=== PATIENT | female | born 1975 | race Caucasian/White ===

== ENCOUNTER → 2016-07-11 | Outpatient (CLI) | payer BC ==
[2016-07-11 14:51] LABS: CH 32.2; CHCM 35.2; HCT 33.2 % (34.0-46.0); HDW 2.57; HGB 11.8 gm/dL (11.4-16.0); MCH 32.6 pg (25.0-35.0); MCHC 35.5 g/dL (31.0-37.0); MCV 91.9 fL (80.0-100.0); Mean Platelet Volume 8.7; RBC 3.62 m/uL (3.80-5.40); RDW 12.2 % (11.5-15.5); WBC 7.3 k/uL (3.8-10.6)
== END | disposition home or self-care (01) ==
LOC: LABWHC1 14:34
PROVIDERS: ATTEND Obstetrics & Gynecology
DX: R50.9 Fever, unspecified (principal)
CPT/HCPCS: 36415; 85027

== ENCOUNTER → 2017-12-03 | Outpatient (CLI) | payer BC ==
--- NOTE | 2017-12-03 10:43 | MM ---
Reason for exam: screening (asymptomatic). Baseline mammogram. History: Took hormonal contraceptives beginning at age 16. Physical Findings: Nurse did not find any significant physical abnormalities on exam. MG 3D Screening Mammo W/Cad Bilateral CC and MLO view(s) were taken. The breast tissue is heterogeneously dense. This may lower the sensitivity of mammography. Right upper outer quadrant distortion at posterior depth. These results were verbally communicated with the patient and result sheet given to the patient on 12/03/17. ASSESSMENT: Incomplete: need additional imaging evaluation, BI-RAD 0 RECOMMENDATION: Special view mammogram of the right breast. If lesion persists on supplemental views, image directed ultrasound is recommended. [facility] will attempt to contact patient to return for supplemental views and ultrasound if indicated.
--- NOTE | 2017-12-03 10:44 | MM ---
Reason for exam: additional evaluation requested from abnormal screening. History: Took hormonal contraceptives beginning at age 16. Physical Findings: Breast exam preformed at baseline screening. MG 3D Work Up W/Cad RT Spot compression CC, spot compression MLO, and ML view(s) were taken of the right breast. The breast tissue is heterogeneously dense. This may lower the sensitivity of mammography. No suspicious abnormality. The upper outer quadrant right focal asymmetry resolves into a background of fibroglandular tissue on additional views. These results were verbally communicated with the patient and result sheet given to the patient on 12/03/17. ASSESSMENT: Benign, BI-RAD 2 RECOMMENDATION: Return to routine screening mammogram schedule for both breasts.
== END | disposition home or self-care (01) ==
LOC: RADMAMWWP 08:21
PROVIDERS: ATTEND Family Medicine
DX: Z12.31 Encounter for screening mammogram for malignant neoplasm of breast (principal); R92.8 Other abnormal and inconclusive findings on diagnostic imaging of breast
CPT/HCPCS: 77061; 77063; 77065; 77067

== ENCOUNTER → 2018-02-23 | Outpatient (CLI) | payer BC ==
--- NOTE | 2018-02-23 12:13 | XR ---
EXAMINATION TYPE: XR chest 2V DATE OF EXAM: 02/23/2018 COMPARISON: 11/12/2011 INDICATION: Cough short of breath TECHNIQUE: Frontal and lateral views of the chest are obtained. FINDINGS: The heart size is normal. The pulmonary vasculature is normal. The lungs are clear. IMPRESSION: 1. No acute pulmonary process.
== END | disposition home or self-care (01) ==
LOC: RADXRMAIN 10:32
PROVIDERS: ATTEND Midwife
DX: R06.02 Shortness of breath (principal)
CPT/HCPCS: 71046

== ENCOUNTER → 2018-04-08 | Outpatient (CLI) | payer BC ==
--- NOTE | 2018-04-08 11:56 | US ---
EXAMINATION TYPE: US transvaginal DATE OF EXAM: 04/08/2018 COMPARISON: US CLINICAL HISTORY: N91.2Amenorrhea, Unspecified. Pt states LMP: December 2017, RLQ pain TECHNIQUE: Transvaginal (TV). Transvag sonographic images of the pelvis were acquired. Date of LMP: December EXAM MEASUREMENTS: Uterus: 9.5 x 4.4 x 6.1 cm Endometrial Stripe: 1.0 cm Right Ovary: 4.2 x 2.9 x 2.9 cm Left Ovary: 2.6 x 2.8 x 1.7 cm 1. Uterus: Anteverted Heterogeneous 2. Endometrium: wnl 3. Right Ovary: Possible isoechoic lesion= 2.9 x 2.1 x 2.2 cm/ Simple cyst= 2.6 x 2.1 x 2.0 cm 4. Left Ovary: Dominant follicle= 1.6 x 1.1 x 1.7 cm 5. Bilateral Adnexa: wnl 6. Posterior cul-de-sac: Very small amount of free fluid IMPRESSION: 1. Nonspecific right ovarian lesion may reflect a complex cyst. Follow-up study in 6 weeks is advised . 2. Dominant left ovarian follicle. 3. Nonspecific uterine myometrial heterogeneity.
== END | disposition home or self-care (01) ==
LOC: RADUSWWP 10:47
PROVIDERS: ATTEND Family Medicine
DX: L98.9 Disorder of the skin and subcutaneous tissue, unspecified (principal); N91.2 Amenorrhea, unspecified
CPT/HCPCS: 76830

== ENCOUNTER 2020-10-15 15:43 | Observation (INO) | payer BC ==
[2020-10-15] MEDS ORDERED: diphenhydrAMINE 50 MG/ML 1 ML VIAL IVP STA (18:45)
[2020-10-15] MEDS ORDERED: METOCLOPRAMIDE 5 MG/ML 2 ML VIAL IVP STA (18:45)
[2020-10-15] MEDS ORDERED: KETOROLAC 15 MG/ML 1 ML VIAL IVP STA (18:45)
[2020-10-15] MEDS ORDERED: SODIUM CHLORIDE 0.9% 1,000 ML IV ONE (18:46)
[2020-10-15] MEDS ORDERED: MAGNESIUM SULFATE-D5W PMX 1 GM in DEXTROSE/WATER 1 100ML.BAG IVPB ONE (18:46)
[2020-10-15 19:16] LABS: Basophils # (A) 0.1 k/uL (0-0.2); Basophils % (A) 0 %; Eosinophils # (A) 0.3 k/uL (0-0.7); Eosinophils % (A) 1 %; HCT 38.5 % (34.0-46.0); Lymphocytes # (A) 1.7 k/uL (1.0-4.8); Lymphocytes % (A) 7 %; MCH 31.4 pg (25.0-35.0); MCHC 33.8 g/dL (31.0-37.0); MCV 92.9 fL (80.0-100.0); Mean Platelet Volume 8.2; Monocytes # (A) 0.4 k/uL (0-1.0); Monocytes % (A) 2 %; Neutrophils # (A) 21.4 k/uL (1.3-7.7); Neutrophils % (A) 89 %; Platelet Count 248 k/uL (150-450); RBC 4.14 m/uL (3.80-5.40)
[2020-10-15 19:23] LABS: Appearance,Urine Cloudy (Clear); Bacteria,Urine Occasional /hpf; Bilirubin,Urine Negative (Negative); Blood,Urine Moderate (Negative); Color,Urine Yellow; Glucose,Urine (UA) Negative (Negative); Ketones,Urine Negative (Negative); Leukocyte Esterase,Urine Large (Negative); Mucus,Urine Few /hpf; Nitrite,Urine Negative (Negative); Protein,Urine 2+ (Negative); RBC,Urine 8 /hpf (0-5); Specific Gravity,Urine 1.023 (1.001-1.035); Squamous Epithelial Cell,Urine 20 /hpf (0-4); Urobilinogen,Urine <2.0 mg/dL (<2.0); WBC,Urine 9 /hpf (0-5)
[2020-10-15 19:25] LABS: ALT 23 U/L (4-34); AST 29 U/L (14-36); African American GFR (CKD) >90 (>60 ml/min/1.73 sqM); Albumin 3.9 g/dL (3.5-5.0); Alkaline Phosphatase 73 U/L (38-126); Anion Gap 9 mmol/L; Blood Urea Nitrogen 15 mg/dL (7-17); Calcium 9.3 mg/dL (8.4-10.2); Carbon Dioxide 21 mmol/L (22-30); Chloride 107 mmol/L (98-107); Glucose 111 mg/dL (74-99); Non-African American GFR(CKD) >90 (>60 ml/min/1.73 sqM); Potassium 4.1 mmol/L (3.5-5.1); Sodium 137 mmol/L (137-145); Total Bilirubin 0.6 mg/dL (0.2-1.3); Total Protein 6.7 g/dL (6.3-8.2)
[2020-10-15] MEDS ORDERED: cefTRIAXone IN SWFI 1,000 MG/10 ML SYRINGE IVP STA ×2 (19:32→21:45)
--- NOTE | 2020-10-15 20:31 | CT ---
EXAMINATION TYPE: CT brain wo con DATE OF EXAM: 10/15/2020 COMPARISON: None available HISTORY: Headache. CT DLP: 1125.4 mGycm. Automated Exposure Control for Dose Reduction was Utilized. TECHNIQUE: CT scan of the head is performed without contrast. Sagittal and coronal reformatted images were obtained. FINDINGS: There is no acute intracranial hemorrhage, mass effect, or midline shift identified. The ventricles and sulci are within normal limits in size. The globes are intact and the visualized sinuses are jaylan ar. IMPRESSION: No acute intracranial hemorrhage, mass effect, or midline shift is seen.
--- NOTE | 2020-10-15 20:35 | CT ---
EXAMINATION TYPE: CT abdomen pelvis w con DATE OF EXAM: 10/15/2020 COMPARISON: CT abdomen/pelvis 04/22/2015 HISTORY: Fever and abdominal pain. CT DLP: 1482.7 mGycm Automated exposure control for dose reduction was used. TECHNIQUE: Helical acquisition of images was performed from the lung bases through the pelvis. Sagit reny coronal reformatted images were obtained. CONTRAST: Performed without Oral Contrast and with IV Contrast, patient injected with 100ml mL of Isovue 300. FINDINGS: Lung bases appear clear. Liver, spleen, pancreas, and bilateral adrenal glands are unremarkable. Gallbladder is present. No intrahepatic or extra hepatic biliary ductal dilatation. The kidneys are symmetric in size without hydronephrosis, renal calculus, or mass. Urinary bladder ap pears unremarkable. Uterus is present. No adnexal masses. No significant free fluid. Bowel is of normal caliber without evidence of obstruction. No significant mesenteric inflammation. A ppendix appears unremarkable. Abdominal aorta is of normal caliber. No intra-abdominal or retroperitoneal lymphadenopathy. Small fa t-containing umbilical hernia. Osseous structures appear intact. IMPRESSION: No acute intra-abdominal process.
--- NOTE | 2020-10-15 20:47 | ED ---
General Adult HPI - General Chief complaint: Headache Stated complaint: headache, right side facial numbness, fever Source: patient Mode of arrival: wheelchair Limitations: no limitations - History of Present Illness Initial comments: The patient is a 45-year-old female with no past medical history who presents emergency Department with reported abdominal pain, fever and concern for septic stone. Patient states that she has had some lower abdominal cramping for the past couple of days. She has increased frequency of urination. She admits to history of similar symptoms in the past when she had a septic stone. The patient had a temp of 101.7 at 10 AM today. States that she's been taking Motrin around the clock. She has an associated global headache with photophobia. States she normally does not get migraines. She denies any sick contacts. Admits to a mild nonproductive cough. No concern for as she has had an ablation. No changes in her bowel habits. No abnormal vaginal bleeding or discharge. No other alleviating, precipitating factors - Related Data Home Medications Medication Instructions Recorded Confirmed Acetaminophen [Tylenol] 1,000 mg PO Q4-6H PRN 10/15/20 10/15/20 Ascorbic Acid [Vitamin C] 1,000 mg PO DAILY 10/15/20 10/15/20 Cholecalciferol [Vitamin D3 (25 50 mcg PO DAILY 10/15/20 10/15/20 Mcg = 1000 Iu)] Esomeprazole Magnesium [NexIUM 20 mg PO BID PRN 10/15/20 10/15/20 24Hr] Ibuprofen [Motrin Ib] 800 mg PO Q8H PRN 10/15/20 10/15/20 L.acidoph,Paracasei, B.lactis 1 cap PO DAILY 10/15/20 10/15/20 [Probiotic] LORazepam [Ativan] 0.5 mg PO TID PRN 10/15/20 10/15/20 Magnesium Oxide [Mag-Ox] 400 mg PO HS 10/15/20 10/15/20 Turmeric Root Extract [Turmeric] 500 mg PO DAILY 10/15/20 10/15/20 Zinc 50 mg PO DAILY 10/15/20 10/15/20 Allergies Allergy/AdvReac Type Severity Reaction Status Date / Time sulfamethoxazole Allergy Swelling Verified 10/15/20 18:20 [From Bactrim] trimethoprim [From Bactrim] Allergy Swelling Verified 10/15/20 18:20 Review of Systems ROS Statement: Those systems with pertinent positive or pertinent negative responses have been documented in the HPI. ROS Other: All systems not noted in ROS Statement are negative. Past Medical History Past Medical History: No Reported History History of Any Multi-Drug Resistant Organisms: None Reported Past Surgical History: Tubal Ligation Past Psychological History: Anxiety Smoking Status: Never smoker Past Alcohol Use History: None Reported Past Drug Use History: None Reported General Exam Limitations: no limitations Course Vital Signs 10/15/20 10/15/20 10/15/20 15:53 18:00 20:18 Temperature 99.8 F H 98.7 F 98.4 F Pulse Rate 88 71 Respiratory 18 18 Rate Blood Pressure 151/94 139/86 O2 Sat by Pulse 97 94 L Oximetry Medical Decision Making - Medical Decision Making Upon arrival patient is placed in room 6. A thorough history and physical exam was performed. IV is established and the patient was given migraine cocktail an d a liter bolus of normal saline. Laboratory studies were conducted which demonstrated white count 24,000. Urinalysis is not a clean catch however does have bacteria. This will be sent for culture. Covid is negative. Chest x-ray does not demonstrate an acute process. CT the abdomen and pelvis does not demonstrate any process. CT of the patient's brain is negative for any acute hemorrhage, mass or edema. The patient is reevaluated and does have improvement in her headache. I did discuss diagnosis, differential and treatment options. She does present with headache and reported fever I did recommend lumbar puncture however the patient is refusing at this time. She is aware of the ris ks of not completing the procedure at this time. I will cover the patient with 2 g of Rocephin. Repeat laboratory studies will be performed performed in the morning. Patient is requesting Ativan for anxiety for which I did order. I spoke with Who Agreed to Admit the Patient. She Is Currently Awaiting a Bed on the Floor - Lab Data Result diagrams: 10/15/20 19:08 10/15/20 19:08 Lab Results 10/15/20 10/15/20 10/15/20 Range/Units 19:08 19:08 19:08 WBC 24.0 H (3.8-10.6) k/uL RBC 4.14 (3.80-5.40) m/uL Hgb 13.0 (11.4-16.0) gm/dL Hct 38.5 (34.0-46.0) % MCV 92.9 (80.0-100.0) fL MCH 31.4 (25.0-35.0) pg MCHC 33.8 (31.0-37.0) g/dL RDW 13.0 (11.5-15.5) % Plt Count 248 (150-450) k/uL MPV 8.2 Neutrophils % 89 % Lymphocytes % 7 % Monocytes % 2 % Eosinophils % 1 % Basophils % 0 % Neutrophils # 21.4 H (1.3-7.7) k/uL Lymphocytes # 1.7 (1.0-4.8) k/uL Monocytes # 0.4 (0-1.0) k/uL Eosinophils # 0.3 (0-0.7) k/uL Basophils # 0.1 (0-0.2) k/uL Sodium 137 (137-145) mmol/L Potassium 4.1 (3.5-5.1) mmol/L Chloride 107 (98-107) mmol/L Carbon Dioxide 21 L (22-30) mmol/L Anion Gap 9 mmol/L BUN 15 (7-17) mg/dL Creatinine 0.69 (0.52-1.04) mg/dL Est GFR (CKD-EPI)AfAm >90 (>60 ml/min/1.73 sqM) Est GFR (CKD-EPI)NonAf >90 (>60 ml/min/1.73 sqM) Glucose 111 H (74-99) mg/dL Plasma Lactic Acid Shant (0.7-2.0) mmol/L Calcium 9.3 (8.4-10.2) mg/dL Total Bilirubin 0.6 (0.2-1.3) mg/dL AST 29 (14-36) U/L ALT 23 (4-34) U/L Alkaline Phosphatase 73 (38-126) U/L Total Protein 6.7 (6.3-8.2) g/dL Albumin 3.9 (3.5-5.0) g/dL Urine Color Yellow Urine Appearance Cloudy H (Clear) Urine pH 6.0 (5.0-8.0) Ur Specific [place] 1.023 (1.001-1.035) Urine Protein 2+ H (Negative) Urine Glucose (UA) Negative (Negative) Urine Ketones Negative (Negative) Urine Blood Moderate H (Negative) Urine Nitrite Negative (Negative) Urine Bilirubin Negative (Negative) Urine Urobilinogen <2.0 (<2.0) mg/dL Ur Leukocyte Esterase Large H (Negative) Urine RBC 8 H (0-5) /hpf Urine WBC 9 H (0-5) /hpf Ur Squamous Epith Cells 20 H (0-4) /hpf Urine Bacteria Occasional H (None) /hpf Urine Mucus Few H (None) /hpf Coronavirus (PCR) (Not Detectd) 10/15/20 10/15/20 Range/Units 19:08 20:22 WBC (3.8-10.6) k/uL RBC (3.80-5.40) m/uL Hgb (11.4-16.0) gm/dL Hct (34.0-46.0) % MCV (80.0-100.0) fL MCH (25.0-35.0) pg MCHC (31.0-37.0) g/dL RDW (11.5-15.5) % Plt Count (150-450) k/uL MPV Neutrophils % % Lymphocytes % % Monocytes % % Eosinophils % % Basophils % % Neutrophils # (1.3-7.7) k/uL Lymphocytes # (1.0-4.8) k/uL Monocytes # (0-1.0) k/uL Eosinophils # (0-0.7) k/uL Basophils # (0-0.2) k/uL Sodium (137-145) mmol/L Potassium (3.5-5.1) mmol/L Chloride (98-107) mmol/L Carbon Dioxide (22-30) mmol/L Anion Gap mmol/L BUN (7-17) mg/dL Creatinine (0.52-1.04) mg/dL Est GFR (CKD-EPI)AfAm (>60 ml/min/1.73 sqM) Est GFR (CKD-EPI)NonAf (>60 ml/min/1.73 sqM) Glucose (74-99) mg/dL Plasma Lactic Acid Shant 1.4 (0.7-2.0) mmol/L Calcium (8.4-10.2) mg/dL Total Bilirubin (0.2-1.3) mg/dL AST (14-36) U/L ALT (4-34) U/L Alkaline Phosphatase (38-126) U/L Total Protein (6.3-8.2) g/dL Albumin (3.5-5.0) g/dL Urine Color Urine Appearance (Clear) Urine pH (5.0-8.0) Ur Specific [place] (1.001-1.035) Urine Protein (Negative) Urine Glucose (UA) (Negative) Urine Ketones (Negative) Urine Blood (Negative) Urine Nitrite (Negative) Urine Bilirubin (Negative) Urine Urobilinogen (<2.0) mg/dL Ur Leukocyte Esterase (Negative) Urine RBC (0-5) /hpf Urine WBC (0-5) /hpf Ur Squamous Epith Cells (0-4) /hpf Urine Bacteria (None) /hpf Urine Mucus (None) /hpf Coronavirus (PCR) Not Detected (Not Detectd) Disposition Clinical Impression: Cephalgia, UTI (urinary tract infection), Leukocytosis, Pyelonephritis Disposition: ADMITTED IP TO THIS [facility] Condition: Stable Is patient prescribed a controlled substance at d/c from ED?: No Referrals: Oscar Field MD [Primary Care Provider] - 1-2 days Decision to Admit Reason: Admit from EC Decision Date: 10/15/20 Decision Time: 21:41
--- NOTE | 2020-10-15 21:00 | XR ---
EXAMINATION TYPE: XR chest 2V DATE OF EXAM: 10/15/2020 COMPARISON: NONE HISTORY: Headache, fever, nausea TECHNIQUE: Frontal and lateral views of the chest are obtained. FINDINGS: There is no focal air space opacity, pleural effusion, or pneumothorax seen. The cardiac silhouette size is within normal limits. The osseous structures are intact. IMPRESSION: No acute cardiopulmonary process.
[2020-10-15] MEDS ORDERED: ACETAMINOPHEN TAB 500 MG TAB PO STA (21:36)
[2020-10-15] MEDS ORDERED: LORazepam 2 MG/ML INJ IV STA (21:36)
[2020-10-15] MEDS ORDERED: NALOXONE 0.4 MG/ML 1 ML VIAL IV PRN (21:45)
[2020-10-15] MEDS: SODIUM CHLORIDE 0.9% 1,000 ML IV SCH (22:26)
[2020-10-16] MEDS: KETOROLAC 15 MG/ML 1 ML VIAL IVP PRN ×3 (02:12→15:21)
[2020-10-16] MEDS: SODIUM CHLORIDE 0.9% 1,000 ML IV SCH ×3 (05:38→21:02)
[2020-10-16] MEDS ORDERED: MORPHINE SULFATE 2 MG/ML SYRINGE IVP STA (05:45)
[2020-10-16 06:47] LABS: Basophils % (A) 0 %; Eosinophils # (A) 0.2 k/uL (0-0.7); Eosinophils % (A) 1 %; HCT 34.5 % (34.0-46.0); HGB 11.8 gm/dL (11.4-16.0); Lymphocytes # (A) 1.8 k/uL (1.0-4.8); Lymphocytes % (A) 11 %; MCH 32.2 pg (25.0-35.0); MCHC 34.2 g/dL (31.0-37.0); MCV 94.2 fL (80.0-100.0); Mean Platelet Volume 8.4; Monocytes # (A) 0.4 k/uL (0-1.0); Monocytes % (A) 3 %; Neutrophils # (A) 14.7 k/uL (1.3-7.7); Neutrophils % (A) 85 %; Platelet Count 202 k/uL (150-450); RBC 3.67 m/uL (3.80-5.40); RDW 12.8 % (11.5-15.5); WBC 17.3 k/uL (3.8-10.6)
[2020-10-16 07:29] LABS: African American GFR (CKD) >90 (>60 ml/min/1.73 sqM); Anion Gap 8 mmol/L; Blood Urea Nitrogen 15 mg/dL (7-17); Calcium 8.2 mg/dL (8.4-10.2); Carbon Dioxide 20 mmol/L (22-30); Chloride 110 mmol/L (98-107); Glucose 104 mg/dL (74-99); Non-African American GFR(CKD) >90 (>60 ml/min/1.73 sqM); Potassium 3.9 mmol/L (3.5-5.1); Sodium 138 mmol/L (137-145)
[2020-10-16] MEDS ORDERED: PANTOPRAZOLE 40 MG TABLET PO PRN (11:12)
[2020-10-16] MEDS ORDERED: ONDANSETRON 4 MG/2 ML VIAL IVP PRN (13:04)
[2020-10-16] MEDS ORDERED: diphenhydrAMINE 50 MG/ML 1 ML VIAL IVP STA (17:59)
[2020-10-16] MEDS ORDERED: PROCHLORPERAZINE INJ 10 MG/2 ML VIAL IVP STA (18:00)
[2020-10-16] MEDS ORDERED: KETOROLAC 15 MG/ML 1 ML VIAL IM STA (18:01)
[2020-10-16] MEDS: LORazepam 2 MG/ML INJ IV PRN (20:54)
--- NOTE | 2020-10-17 00:43 | P.HPIM ---
History of Present Illness H&P Date: 10/16/20 Chief Complaint: Abdominal Pain Patient is a 45-year-old female with a known history of anxiety, migraine headaches, currently someday smoker presents to ER with the complaints of lower abdominal cramping pain and fever. Patient was concerned about passing stone. She was told that she had renal stones previously but never has seen urology. Denied any dysuria or increased frequency of urination. Patient states that she had fever 101.7 yesterday morning. Patient has been taking Motrin. Patient also developed headache mainly frontal region and photophobia. Patient does have episodic migraine headaches around this season and usually resolves spontaneously. Patient had severe headache while in the ER and was given Benadryl, Toradol and Reglan., Which seemed to improve her headache significantly. Patient recently seen her chiropractor Chin due to her chronic neck pain. Denies any complaints of chest pain or shortness of breath. No recent illnesses. CT head showed no acute intracranial hemorrhage, mass-effect or midline shift is seen. CT abdomen pelvis showed no acute intra-abdominal process. Chest x-ray showed no acute process. Laboratory data showed WBC 24.0 hemoglobin 13.0 and platelets 248 Sodium 137 potassium 4.1 chloride 107 bicarb is 21 BUN 15 and creatinine 0.69 Liver enzymes are not elevated Urinalysis showed cloudy with 2+ protein moderate blood large leukocyte esterase with RBCs 8 and WBCs 9 and squamous epithelial cells. Coronavirus PCR not detected. Review of Systems Constitutional: Patient was febrile. No chills. No generalized weakness or weight loss. Abdomen: Patient does have lower abdominal and left flank pain. No dysuria or hematuria. No nausea vomiting or diarrhea.. Cardiovascular: Patient denies any chest pain or short of breath no palpitations. Respiratory: patient denied any cough or sputum production. No shortness of breath Neurologic: Patient denied any numbness or tingling headache. Musculoskeletal: Patient denies any complaints of joint swelling or deformity. Skin: Negative Psychiatric: Negative Endocrine: No heat or cold intolerance. No recent weight gain. Genitourinary: No dysuria or hematuria. All other 14 point ROS negative except the above Past Medical History Past Medical History: No Reported History History of Any Multi-Drug Resistant Organisms: None Reported Past Surgical History: Tubal Ligation Additional Past Surgical History / Comment(s): Ablation Past Anesthesia/Blood Transfusion Reactions: No Reported Reaction Past Psychological History: Anxiety Additional Psychological History / Comment(s): Ativan 0.5mg TID Smoking Status: Current some day smoker Past Alcohol Use History: None Reported Past Drug Use History: None Reported Medications and Allergies Home Medications Medication Instructions Recorded Confirmed Type Acetaminophen [Tylenol] 1,000 mg PO Q4-6H PRN 10/15/20 10/15/20 History Ascorbic Acid [Vitamin C] 1,000 mg PO DAILY 10/15/20 10/15/20 History Cholecalciferol [Vitamin D3 (25 50 mcg PO DAILY 10/15/20 10/15/20 History Mcg = 1000 Iu)] Esomeprazole Magnesium [NexIUM 20 mg PO BID PRN 10/15/20 10/15/20 History 24Hr] Ibuprofen [Motrin Ib] 800 mg PO Q8H PRN 10/15/20 10/15/20 History L.acidoph,Paracasei, B.lactis 1 cap PO DAILY 10/15/20 10/15/20 History [Probiotic] LORazepam [Ativan] 0.5 mg PO TID PRN 10/15/20 10/15/20 History Magnesium Oxide [Mag-Ox] 400 mg PO HS 10/15/20 10/15/20 History Turmeric Root Extract [Turmeric] 500 mg PO DAILY 10/15/20 10/15/20 History Zinc 50 mg PO DAILY 10/15/20 10/15/20 History Allergies Allergy/AdvReac Type Severity Reaction Status Date / Time sulfamethoxazole Allergy Swelling Verified 10/15/20 18:20 [From Bactrim] trimethoprim [From Bactrim] Allergy Swelling Verified 10/15/20 18:20 Physical Exam Vitals: Vital Signs Temp Pulse Pulse Resp BP BP Pulse Ox 10/16/20 08:00 98.6 F 83 18 129/84 96 10/16/20 02:11 99.1 F 96 16 119/72 94 L 10/15/20 23:38 16 10/15/20 23:19 99.5 F 86 16 137/85 96 10/15/20 22:25 99.7 F H 62 18 149/86 96 10/15/20 20:18 98.4 F 71 18 139/86 94 L 10/15/20 18:00 98.7 F 10/15/20 15:53 99.8 F H 88 18 151/94 97 Intake and Output 10/15/20 10/16/20 10/16/20 22:59 06:59 14:59 Intake Total 300 Balance 300 Intake: Oral 300 Other: Voiding Method Toilet # Voids 1 Weight 99.79 kg 99.7 kg PHYSICAL EXAMINATION: Patient is lying in the bed comfortably, no acute distress, awake alert and oriented.. HEENT: Normocephalic. Neck is supple. Pupils reactive. Nostrils clear. Oral cavity is moist. Ears reveal no drainage. Neck reveals no JVD, carotid bruits, or thyromegaly. CHEST EXAMINATION: Trachea is central. Symmetrical expansion. Lung farah clear to auscultation and percussion. CARDIAC: Normal S1, S2 with no gallops. No murmurs ABDOMEN: Soft. Bowel sounds normal. No organomegaly. No abdominal bruits. Extremities: reveal no edema. No clubbing or cyanosis Neurologically awake, alert, oriented x3 with well-coordinated movements. No focal deficits noted Skin: No rash or skin lesions. Psychiatric: Coperative. Nonsuicidal Musculoskeletal: No joint swelling or deformity. Normal range of motion. Results CBC & Chem 7: 10/16/20 06:23 10/16/20 06:23 Labs: Abnormal Lab Results - Last 24 Hours (Table) 10/15/20 10/15/20 10/15/20 Range/Units 19:08 19:08 19:08 WBC 24.0 H (3.8-10.6) k/uL RBC (3.80-5.40) m/uL Neutrophils # 21.4 H (1.3-7.7) k/uL Chloride (98-107) mmol/L Carbon Dioxide 21 L (22-30) mmol/L Glucose 111 H (74-99) mg/dL Calcium (8.4-10.2) mg/dL Urine Appearance Cloudy H (Clear) Urine Protein 2+ H (Negative) Urine Blood Moderate H (Negative) Ur Leukocyte Esterase Large H (Negative) Urine RBC 8 H (0-5) /hpf Urine WBC 9 H (0-5) /hpf Ur Squamous Epith Cells 20 H (0-4) /hpf Urine Bacteria Occasional H (None) /hpf Urine Mucus Few H (None) /hpf 10/16/20 10/16/20 Range/Units 06:23 06:23 WBC 17.3 H (3.8-10.6) k/uL RBC 3.67 L (3.80-5.40) m/uL Neutrophils # 14.7 H (1.3-7.7) k/uL Chloride 110 H (98-107) mmol/L Carbon Dioxide 20 L (22-30) mmol/L Glucose 104 H (74-99) mg/dL Calcium 8.2 L (8.4-10.2) mg/dL Urine Appearance (Clear) Urine Protein (Negative) Urine Blood (Negative) Ur Leukocyte Esterase (Negative) Urine RBC (0-5) /hpf Urine WBC (0-5) /hpf Ur Squamous Epith Cells (0-4) /hpf Urine Bacteria (None) /hpf Urine Mucus (None) /hpf Thrombosis Risk Factor Assmnt - DVT/VTE Prophylaxis DVT/VTE Prophylaxis: Pharmacologic Prophylaxis ordered - Choose All That Apply Any of the Below Risk Factors Present?: Yes Each Factor Represents 1 point: Age 41-60 years Other Risk Factors: No Other congenital or acquired thrombophilia - If yes, enter type in comment: No Thrombosis Risk Factor Assessment Total Risk Factor Score: 1 Thrombosis Risk Factor Assessment Level: Low Risk Assessment and Plan Assessment: Left lower abdominal pain flank pain with possible passing of stone. Acute urinary tract infection Sepsis secondary to UTI with leukocytosis and tachycardia and fever Acute migraine headache Anxiety Currently some day smoker DVT prophylaxis with heparin subcu and GI prophylaxis Plan: Patient with cannula IV hydration with normal saline. Continue with antibiotics in the form of ceftriaxone and follow-up urine culture report. Patient is still complaining of frontal headache and. Combination of Toradol, Compazine and Benadryl will be ordered. Follow-up blood cultures. Leukocytosis is improving. Continue to follow closely. CT abdomen pelvis showed no evidence of renal stones. Discussed with her and the patient at bedside in detail. Time with Patient: Greater than 30
[2020-10-17] MEDS: KETOROLAC 15 MG/ML 1 ML VIAL IVP PRN ×2 (04:42→10:44)
[2020-10-17] MEDS: SODIUM CHLORIDE 0.9% 1,000 ML IV SCH (05:39)
[2020-10-17] MEDS ORDERED: METOCLOPRAMIDE 5 MG/ML 2 ML VIAL IVP STA (07:36)
[2020-10-17] MEDS ORDERED: LACTATED RINGERS 1,000 ML IV SCH (07:45)
[2020-10-17 07:50] LABS: Basophils % (A) 0 %; Eosinophils # (A) 0.1 k/uL (0-0.7); Eosinophils % (A) 1 %; HCT 30.5 % (34.0-46.0); HGB 10.9 gm/dL (11.4-16.0); Lymphocytes # (A) 2.1 k/uL (1.0-4.8); Lymphocytes % (A) 18 %; MCH 33.9 pg (25.0-35.0); MCHC 35.8 g/dL (31.0-37.0); MCV 94.9 fL (80.0-100.0); Mean Platelet Volume 8.9; Monocytes # (A) 0.4 k/uL (0-1.0); Monocytes % (A) 3 %; Neutrophils # (A) 8.5 k/uL (1.3-7.7); Neutrophils % (A) 76 %; Platelet Count 183 k/uL (150-450); RBC 3.21 m/uL (3.80-5.40); RDW 12.6 % (11.5-15.5); WBC 11.2 k/uL (3.8-10.6)
[2020-10-17] MEDS ORDERED: diphenhydrAMINE 50 MG/ML 1 ML VIAL IVP STA (07:56)
[2020-10-17 07:58] LABS: ALT 17 U/L (4-34); AST 24 U/L (14-36); African American GFR (CKD) >90 (>60 ml/min/1.73 sqM); Alkaline Phosphatase 60 U/L (38-126); Anion Gap 4 mmol/L; Blood Urea Nitrogen 12 mg/dL (7-17); Calcium 8.3 mg/dL (8.4-10.2); Carbon Dioxide 21 mmol/L (22-30); Chloride 116 mmol/L (98-107); Glucose 102 mg/dL (74-99); Non-African American GFR(CKD) >90 (>60 ml/min/1.73 sqM); Potassium 4.1 mmol/L (3.5-5.1); Sodium 141 mmol/L (137-145); Total Bilirubin 0.1 mg/dL (0.2-1.3); Total Protein 5.5 g/dL (6.3-8.2)
[2020-10-17] MEDS ORDERED: HEPARIN SODIUM,PORCINE/PF 5,000 UNIT/0.5 ML SYRINGE SQ SCH (08:00)
[2020-10-17] MEDS: LORazepam 2 MG/ML INJ IV PRN (08:15)
[2020-10-17] MEDS ORDERED: ORPHENADRINE 30 MG/ML 2 ML VIAL IVP STA (11:07)
[2020-10-17] MEDS ORDERED: HYDROcodone/APAP 5-325MG 1 EACH TAB PO STA (11:08)
[2020-10-17] MEDS ORDERED: methocarbamoL 500 MG TAB PO SCH (13:00)
[2020-10-17 14:57] VITALS: BP 143/75; PULSE 73; RESP 18; TEMP 98.2
--- NOTE | 2020-10-17 17:57 | P.DS ---
Providers Date of admission: 10/15/20 21:45 Expected date of discharge: 10/17/20 Attending physician: Oscar Field Primary care physician: Oscar Field Hospital Course: 45-year-old female was admitted to the hospital with no significant medical history. Patient presented to the hospital with fever or abdominal pain nausea and CVA tenderness. Patient had noticed dysuria with flank pain, patient states pain and discomfort similar to septic stone in the past. Patient was treated with broad-spectrum IV antibiotics. Trending of leukocytosis decreased throughout hospital stay with IV antibiotics and IV hydration. Patient had intermittent episodes of headaches treated with analgesic therapy. She will be discharged on ciprofloxacin 500 mg twice a day for 7 days. Patient to follow-up with primary care 1-2 days. Patient tolerated hospital stay well. Assessment: Acute urinary tract infection present upon admission Leukocytosis Pyelonephritis Cephalgia GERD/reflux Mixed anxiety and depression History of tubal ligation Full code Health Concerns: None noted Pertinent Studies: CT of the head without contrast no acute abnormalities noted CT abdomen and pelvis, no acute injury or abdominal processes noted, no hydronephrosis noted Procedures: No procedures performed during hospital stay Patient Condition at Discharge: Good Plan - Discharge Summary Discharge Rx Participant: Yes New Discharge Prescriptions: New Ciprofloxacin HCl [Cipro] 500 mg PO Q12H 5 Days #10 tab Cyclobenzaprine [Flexeril] 10 mg PO TID #30 tab Continue Esomeprazole Magnesium [NexIUM 24Hr] 20 mg PO BID PRN PRN Reason: GERDS Magnesium Oxide [Mag-Ox] 400 mg PO HS Ascorbic Acid [Vitamin C] 1,000 mg PO DAILY Acetaminophen [Tylenol] 1,000 mg PO Q4-6H PRN PRN Reason: Pain Or Fever > 100.5 Zinc 50 mg PO DAILY L.acidoph,Paracasei, B.lactis [Probiotic] 1 cap PO DAILY Cholecalciferol [Vitamin D3 (25 Mcg = 1000 Iu)] 50 mcg PO DAILY Turmeric Root Extract [Turmeric] 500 mg PO DAILY Ibuprofen [Motrin Ib] 800 mg PO Q8H PRN PRN Reason: Pain Or Fever > 100.5 LORazepam [Ativan] 0.5 mg PO TID PRN PRN Reason: Anxiety Discharge Medication List Acetaminophen [Tylenol] 1,000 mg PO Q4-6H PRN 10/15/20 [History] Ascorbic Acid [Vitamin C] 1,000 mg PO DAILY 10/15/20 [History] Cholecalciferol [Vitamin D3 (25 Mcg = 1000 Iu)] 50 mcg PO DAILY 10/15/20 [His tory] Esomeprazole Magnesium [NexIUM 24Hr] 20 mg PO BID PRN 10/15/20 [History] Ibuprofen [Motrin Ib] 800 mg PO Q8H PRN 10/15/20 [History] L.acidoph,Paracasei, B.lactis [Probiotic] 1 cap PO DAILY 10/15/20 [History] LORazepam [Ativan] 0.5 mg PO TID PRN 10/15/20 [History] Magnesium Oxide [Mag-Ox] 400 mg PO HS 10/15/20 [History] Turmeric Root Extract [Turmeric] 500 mg PO DAILY 10/15/20 [History] Zinc 50 mg PO DAILY 10/15/20 [History] Ciprofloxacin HCl [Cipro] 500 mg PO Q12H 5 Days #10 tab 10/17/20 [Rx] Cyclobenzaprine [Flexeril] 10 mg PO TID #30 tab 10/17/20 [Rx] Follow up Appointment(s)/Referral(s): Oscar Field MD [Primary Care Provider] - 10/19/20 11:10 am Ambulatory/Diagnostic Orders: Complete Blood Count w/diff [LAB.AMB] Location: None Selected Comprehensive Metabolic Panel [LAB.AMB] Location: None Selected Patient Instructions/Handouts: Urinary Tract Infection in Women (DC), Cluster Headache (GEN), Leukocytosis (DC) Activity/Diet/Wound Care/Special Instructions: Take antibiotics as ordered. Follow up with physicians as directed. Call Dr Field's office with any questions. Return to the ER with any emergent needs. Discharge Disposition: HOME SELF-CARE
== END 2020-10-17 15:24 | disposition home or self-care (01) ==
LOC: EC 15:43 → 6PED 21:45
PROVIDERS: ADMIT Family Medicine; ATTEND Family Medicine
DX: N12 Tubulo-interstitial nephritis, not specified as acute or chronic (principal); A41.9 Sepsis, unspecified organism; G43.909 Migraine, unspecified, not intractable, without status migrainosus; F41.8 Other specified anxiety disorders; G89.29 Other chronic pain; M54.2 Cervicalgia; K21.9 Gastro-esophageal reflux disease without esophagitis; F17.200 Nicotine dependence, unspecified, uncomplicated; Z20.822 Contact with and (suspected) exposure to COVID-19; Z79.899 Other long term (current) drug therapy; Z88.1 Allergy status to other antibiotic agents; Z88.2 Allergy status to sulfonamides; Z98.51 Tubal ligation status; Z87.442 Personal history of urinary calculi
CPT/HCPCS: 96361 ×4; 96366; 96367; 96372 ×2; 96375 ×2; 96376 ×3; 96365; 99285; 36415; 80053 ×2; 80048; 85652; 83605; 85025 ×3; 86140; 81001; 87040; 87086; 84145; 87635; 71046; 70450; 74177; G0378 ×3; J2060 ×3; J1200 ×3; J0780; J2765 ×2; J2405; J0696 ×3; J2270; J3475; J1885 ×3; Q9967; J1644

== ENCOUNTER → 2020-10-20 | Outpatient (CLI) | payer BC ==
--- NOTE | 2020-10-20 10:53 | XR ---
EXAMINATION TYPE: XR chest 2V DATE OF EXAM: 10/20/2020 COMPARISON: 10/15/2020 TECHNIQUE: PA and lateral views submitted. HISTORY: sob FINDINGS: I lateral lower lobe subsegmental consolidation with coarsened interstitium. Heart size stable. No pn eumothorax. Biapical pleural thickening. Small bilateral effusions. Hyperinflation suggests COPD. Deg enerative changes spine. IMPRESSION: 1. COPD with bilateral infiltrate and small effusion. Could not exclude a mild interstitial pneumonit is or venous congestion correlate clinically.
--- NOTE | 2020-10-20 13:06 | US ---
EXAMINATION TYPE: US kidneys/renal and bladder DATE OF EXAM: 10/20/2020 COMPARISON: CT 10/15/2020, chest x-ray 10/20/2020 CLINICAL HISTORY: R10.9 FLANK PAIN, R06.00 DYSPNEA. Recently discharged for UTI; still c/o urgency, f requency, hematuria and dyspnea x 4 days; bilateral flank pain with right greater than left side. EXAM MEASUREMENTS: Right Kidney: 10.0 x 5.0 x 4.5 cm Left Kidney: 11.4 x 5.2 x 6.0 cm Post Void Residual Volume: 248.9 mL Right Kidney: No hydronephrosis or masses seen Left Kidney: No hydronephrosis or masses seen Bladder: wnl Bilateral Jets seen: yes Normal Post Void Residual: abnormal volume retained There is no evidence for hydronephrosis at this point in time. No nephrolithiasis is seen. No courtney s are identified. Cortical medullary differentiation is maintained. The urinary bladder is anechoic. Bilateral ureteral jets are seen. incidental findings on US: small bilateral pleural effusions are noted. IMPRESSION: Bilateral pleural effusions. Elevated post void residual volume within the urinary bladder.
== END | disposition home or self-care (01) ==
LOC: RADUSWWP 10:01
PROVIDERS: ATTEND Family Medicine
DX: J90 Pleural effusion, not elsewhere classified (principal); J44.9 Chronic obstructive pulmonary disease, unspecified; R10.9 Unspecified abdominal pain; R06.00 Dyspnea, unspecified
CPT/HCPCS: 71046; 76770

== ENCOUNTER → 2020-11-13 | Outpatient (CLI) | payer BC ==
--- NOTE | 2020-11-13 17:35 | CT ---
EXAMINATION TYPE: CT chest wo con DATE OF EXAM: 11/13/2020 COMPARISON: Radiograph 10/20/2020 HISTORY: 45-year-old female follow-up pneumonia, pleural effusions TECHNIQUE: Contiguous axial scanning of the chest without IV contrast. Coronal and sagittal reconstru ctions performed. CT DLP: 775 mGycm Automated exposure control for dose reduction was used. FINDINGS: Heart normal size without pericardial effusion. Aorta normal caliber with conventional arch also branching anatomy. No thoracic lymphadenopathy by CT size criteria. Trace biapical pleural parenchymal scarring. No consolidation or pleural effusion. A couple anterior right lower lung pulmonary nodules measuring 4 mm and 3 mm are nonspecific. 6-12 mo nth follow-up CT can reassess. Visualized upper abdomen shows no gross abnormality. Bones: Mild anterior endplate spondylosis lower thoracic spine. IMPRESSION: 1. NO ACUTE PULMONARY PROCESS. RESOLUTION OF THE PREVIOUS BIBASILAR OPACITIES SEEN ON 10/20/2020 RADIO GRAPH. 2. A COUPLE PULMONARY NODULES ANTERIOR RIGHT LOWER LUNG MEASURING 4 MM AND 3 MM. A 6 - 12 MONTH FOLL OW-UP CT CHEST CAN ENSURE STABILITY.
--- NOTE | 2020-11-14 10:31 | ECHOF ---
Referral Reason:J90 Pleural effusion, R07.89 MEASUREMENTS -------- HEIGHT: 170.2 cm WEIGHT: 99.8 kg BP: RVIDd: 2.5 cm (< 3.3) IVSd: 1.2 cm (0.6 - 1.1) LVIDd: 4.9 cm (3.9 - 5.3) LVPWd: 1.2 cm (0.6 - 1.1) IVSs: 1.4 cm LVIDs: 3.6 cm LVPWs: 1.5 cm LA Diam: 4.1 cm (2.7 - 3.8) LAESV Index (A-L): 28.15 ml/m Ao Diam: 2.9 cm (2.0 - 3.7) AV Cusp: 1.9 cm (1.5 - 2.6) LA Diam: 4.3 cm (2.7 - 3.8) MV EXCURSION: 18.048 mm (> 18.000) MV EF SLOPE: 113 mm/s (70 - 150) EPSS: 0.6 cm MV E Jose: 0.74 m/s MV DecT: 207 ms MV A Jose: 0.57 m/s MV E/A Ratio: 1.28 RAP: 5.00 mmHg RVSP: 35.33 mmHg FINDINGS -------- Sinus rhythm. This was a technically adequate study. The left ventricular size is normal. There is mild concentric left ventricular hypertrophy. Overa ll left ventricular systolic function is normal with, an EF between 55 - 60 %. The diastolic fillin g pattern is normal for the age of the patient 12.94. The right ventricle is normal in size. Normal LA size by volume 22+/-6 ml/m2. The right atrial size is normal. The aortic valve is trileaflet, and appears structurally normal. No aortic stenosis or regurgitation. The mitral valve is normal. Mild mitral regurgitation is present. The tricuspid valve appears structurally normal. Mild tricuspid regurgitation present. There is m ild pulmonary hypertension. The right ventricular systolic pressure, as measured by Doppler, is 35. 33mmHg. There is no pulmonic regurgitation present. The aortic root size is normal. There is a trivial pericardial effusion present. CONCLUSIONS -------- 1. There is mild concentric left ventricular hypertrophy. 2. Overall left ventricular systolic function is normal with, an EF between 55 - 60 %. 3. Normal LA size by volume 22+/-6 ml/m2. 4. The aortic valve is trileaflet, and appears structurally normal. No aortic stenosis or regurgitati on. 5. Mild mitral regurgitation is present. 6. Mild tricuspid regurgitation present. 7. There is mild pulmonary hypertension. 8. There is a trivial pericardial effusion present. SENIOR SOFTWARE DEVELOPMENT MANAGER: Chantel Fry RDCS
== END | disposition home or self-care (01) ==
LOC: RADECHMAIN 14:43
PROVIDERS: ATTEND Family Medicine
DX: J90 Pleural effusion, not elsewhere classified (principal); R91.1 Solitary pulmonary nodule
CPT/HCPCS: 71250; 93306

== ENCOUNTER → 2020-11-24 | Outpatient (CLI) | payer BC ==
--- NOTE | 2020-11-24 16:27 | US ---
EXAMINATION TYPE: US kidneys/renal and bladder DATE OF EXAM: 11/24/2020 COMPARISON: US 10/20/[address] October 15, 2020 CLINICAL HISTORY: R10.9 ABD PAIN. EXAM MEASUREMENTS: Right Kidney: 12.6 x 4.8 x 5.2 cm Left Kidney: 12.6 x 7.1 x 6.6 cm Post void: 230.81 ml Right Kidney: No hydronephrosis or masses seen Left Kidney: No hydronephrosis or masses seen Bladder: wnl Bilateral Jets seen: Yes Normal Post Void Residual: no, 230.81 ml There is no evidence for hydronephrosis at this point in time. No nephrolithiasis is seen. No courtney s are identified on the Images saved. When scanning the right kidney adjacent liver is heterogeneousl y hyperechoic suggesting diffuse fatty infiltration. The urinary bladder is well-distended. Bilatera l ureteral jets are seen. Abnormal post void residual. IMPRESSION: No hydronephrosis noted bilaterally. Abnormal post void residual noted.
== END | disposition home or self-care (01) ==
LOC: RADUSWWP 15:21
PROVIDERS: ATTEND Family Medicine
DX: R10.9 Unspecified abdominal pain (principal)
CPT/HCPCS: 76770

== ENCOUNTER → 2020-11-29 | Outpatient (CLI) | payer BC ==
--- NOTE | 2020-11-29 10:52 | NM ---
EXAMINATION TYPE: NM stress cardiolite complete DATE OF EXAM: 11/29/2020 COMPARISON: NONE HISTORY: Chest pain TECHNIQUE: After the intravenous administration of 9.6 mCi Tc 99m Sestamibi - Rest images obtained 4 5 minutes post injection. The patient exercised using a KRYSTYNA protocol and 1 minute prior to peak e xercise was injected with 24.8 mCi Tc 99m Sestamibi - Stress images obtained 15 minutes post injectio n. FINDINGS: Targeted heart rate was achieved during performance of the study. Review of stress and rest SPECT delaney ges demonstrates fixed defect involving the anterior wall the myocardium.. Gated analysis shows norm al wall motion with an estimated left ventricular ejection fraction of 62 %. IMPRESSION: 1. Fixed defect involving the anterior wall myocardium. Small area of stress-induced reversibility ca nnot be entirely excluded correlate clinically. 2. Ejection fraction of 62%.
--- NOTE | 2020-11-29 12:06 | P.STRESS ---
- Stress Test Note Stress Test Results/Findings: Exam Performed: NM stress cardiolite complete Exam Date: 11/29/20 Reason for Exam: DILIP Height: 5 ft 7 in Weight: 103 kg Protocol: CARDIOLITE STRESS Stage: 3 Duration of Exercise: 6:45 Resting Heart Rate: 88 Resting Blood Pressure: 134/98 Maximum Achieved Heart Rate: 167 Maximum Achieved Blood Pressure: 184/89 85% PMHR: 147 100% PMHR: 173 METS: 8.3 Technologist Comment: Stress Test Results/Findings: This is a 45-year-old female with history of diabetes and palpitations and also smoking history. Being evaluated for cardiac status and shortness of breath. Stress data: Blood pressure at rest is 1:30/98. The pulse rate of 88. Baseline EKG showed sinus rhythm with mild diffuse ST-T abnormalities in inferolateral leads. Patient walked on the Adrian protocol for 6 minutes and 45 seconds achieving a maximum heart rate of 167 with a blood pressure of 184/89. EKGs taken during the exercise showed about how to [address] depression with upsloping segments in inferolateral leads. An associated with any symptoms of chest pain. Final impression: #1. Nondiagnostic stress test, because of baseline EKG normalities #2. Patient did not express any chest pain. #3. No arrhythmias were detected. #4: Below average exercise capacity
== END | disposition home or self-care (01) ==
LOC: RADNMMAIN 07:58
PROVIDERS: ATTEND Family Medicine
DX: R07.89 Other chest pain (principal)
CPT/HCPCS: 93017; 78452; A9500

== ENCOUNTER → 2021-01-26 | Outpatient (CLI) | payer BC ==
[2021-01-27 03:13] LABS: ALT 19 U/L (8-44); AST 20 U/L (13-35); African American GFR (CKD) 119.6 (60.0-200.0); Albumin 4.1 g/dL (3.8-4.9); Albumin/Globulin Ratio 1.52 (1.60-3.17); Alkaline Phosphatase 80 U/L (41-126); BUN/Creat Ratio 16.86 Ratio (12.00-20.00); Blood Urea Nitrogen 11.8 mg/dL (9.0-27.0); Calcium 9.9 mg/dL (8.7-10.3); Chloride 102 mmol/L (96-109); Globulin 2.7 g/dL (1.6-3.3); Glucose 85 mg/dL (70-110); Non-African American GFR(CKD) 103.2 (60.0-200.0); Potassium 4.8 mmol/L (3.5-5.5); Sodium 138 mmol/L (135-145); Total Bilirubin <0.20 mg/dL (0.30-1.20); Total Protein 6.8 g/dL (6.2-8.2)
[2021-01-29 10:43] LABS: Alt. alternata IgE Class CLASS 1; Alternaria alternata IgE 0.42 kU/L (<0.10); Asperg. fumagatus IgE 0.94 kU/L (<0.10); Asperg. fumagatus IgE Class CLASS 2; Candida albicans IgE Class CLASS 2; Clad herbarum IgE 0.19 kU/L (<0.10); Clad herbarum IgE Class CLASS 0/1; Latex IgE Class CLASS 0; Mucor racemosus IgE 0.32 kU/L (<0.10); Mucor racemosus IgE Class CLASS 0/1; Penicillium chrysogenum IgE <0.10 kU/L (<0.10); Penicillium chrysogenum IgE Cl CLASS 0
== END | disposition home or self-care (01) ==
LOC: LABWHC1 13:15
PROVIDERS: ATTEND Internal Medicine Interventional Cardiology
DX: B44.81 Allergic bronchopulmonary aspergillosis (principal); I10 Essential (primary) hypertension
CPT/HCPCS: 36415; 80053; 86001; 86003; 86606; 86609

== ENCOUNTER → 2021-04-20 | Outpatient (CLI) | payer BC ==
--- NOTE | 2021-04-23 09:11 | MM ---
Reason for exam: screening (asymptomatic). Last mammogram was performed 3 years and 4 months ago. History: Took hormonal contraceptives beginning at age 16. Physical Findings: A clinical breast exam by your physician is recommended on an annual basis and results should be correlated with mammographic findings. MG 3D Screening Mammo W/Cad Bilateral CC, MLO, and XCCL view(s) were taken. Prior study comparison: December 03, 2017, right breast MG 3d work up w/cad RT. December 03, 2017, bilateral MG 3d screening mammo w/cad. The breast tissue is heterogeneously dense. This may lower the sensitivity of mammography. There is no discrete abnormality. ASSESSMENT: Negative, BI-RAD 1 RECOMMENDATION: Routine screening mammogram of both breasts in 1 year.
== END ==
LOC: RADMAMWWP 09:53
PROVIDERS: ATTEND Family Medicine
DX: Z12.39 Encounter for other screening for malignant neoplasm of breast (principal)
CPT/HCPCS: 77063; 77067

== ENCOUNTER → 2021-04-24 | Outpatient (CLI) | payer BC ==
--- NOTE | 2021-04-24 08:46 | CT ---
EXAMINATION TYPE: CT chest wo con DATE OF EXAM: 04/24/2021 INDICATION: prior abnormal spots on lungs hx of smoker CT DLP: 510.30 mGy.cm Automated Exposure Control for Dose Reduction was Utilized. TECHNIQUE AND CONTRAST: Multiple CT scan of the chest without IV contrast administration. COMPARISON: CT dated 11/13/2020 FINDINGS: No appreciable interval changes regarding the size and number of the previously seen scattered bilate ral pulmonary nodules measuring up to 4 mm (arrows in series 4). Minimal bilateral apical pulmonary f ibrotic changes. Unremarkable remainder of the lungs with no new suspicious or progressive lung lesio n. Patent central airways. No pleural or pericardial effusion. No gross cardiomegaly. No significant ath erosclerotic calcifications. No pathologically enlarged lymph nodes in the chest. Questionable small hiatal hernia. Degenerative changes of the midthoracic spine. IMPRESSION: Stable scattered bilateral pulmonary nodules measuring up to 4 mm as compared to October 2020 CT sc an. Considering the history of smoker, another follow-up CT scan by October 2021 should be consider ed.
== END | disposition home or self-care (01) ==
LOC: RADCTMAIN 06:49
PROVIDERS: ATTEND Family Medicine
DX: R91.8 Other nonspecific abnormal finding of lung field (principal)
CPT/HCPCS: 71250

== ENCOUNTER 2021-05-03 08:00 | Day surgery (SDC) | payer BC ==
[2021-05-01 13:21] VITALS: BMI 35.2
[~2021-05-03 08:00] MED LIST: LACTATED RINGERS 1,000 ML IV SCH
--- NOTE | 2021-05-03 08:16 | P.GSHP ---
History of Present Illness H&P Date: 05/03/21 CHIEF COMPLAINT: Colon screen HISTORY OF PRESENT ILLNESS: The patient is a 45-year-old female who presents for colon screen. Lower endoscopy was offered for further evaluation and management. PAST MEDICAL HISTORY: Please see list. PAST SURGICAL HISTORY: Please see list. MEDICATIONS: Please see list. ALLERGIES: Please see list. SOCIAL HISTORY: No illicit drug use FAMILY HISTORY: No reports of Crohn disease or ulcerative colitis. REVIEW OF ORGAN SYSTEMS: CONSTITUTIONAL: No reports of fevers or chills. PHYSICAL EXAM: VITAL SIGNS: Stable GENERAL: Well-developed pleasant in no acute distress. HEENT: No scleral icterus. Extraocular movements grossly intact. Moist buccal mucosa. NECK: Supple without lymphadenopathy. CHEST: Unlabored respirations. Equal bilateral excursions. CARDIOVASCULAR: Regular rate and rhythm. Distal 2+ pulses. ABDOMEN: Soft, nontender, nondistended. MUSCULOSKELETAL: No clubbing, cyanosis, or edema. ASSESSMENT: 1. Colon screen. PLAN: 1. Recommend proceeding with a lower endoscopy Past Medical History Past Medical History: GERD/Reflux, Hyperlipidemia, Hypertension History of Any Multi-Drug Resistant Organisms: None Reported Past Surgical History: Tubal Ligation, Uterine Ablation Additional Past Surgical History / Comment(s): Ablation Past Anesthesia/Blood Transfusion Reactions: No Reported Reaction Smoking Status: Former smoker - Past Family History Mother Family Medical History: No Reported History Medications and Allergies Home Medications Medication Instructions Recorded Confirmed Type Acetaminophen [Tylenol] 1,000 mg PO Q4-6H PRN 10/15/20 05/01/21 History Ascorbic Acid [Vitamin C] 1,000 mg PO DAILY 10/15/20 05/01/21 History Cholecalciferol [Vitamin D3 (25 50 mcg PO DAILY 10/15/20 05/01/21 History Mcg = 1000 Iu)] Esomeprazole Magnesium [NexIUM 20 mg PO BID PRN 10/15/20 05/01/21 History 24Hr] LORazepam [Ativan] 0.5 mg PO TID PRN 10/15/20 05/01/21 History Magnesium Oxide [Mag-Ox] 400 mg PO HS 10/15/20 05/01/21 History Turmeric Root Extract [Turmeric] 500 mg PO DAILY 10/15/20 05/01/21 History Zinc 50 mg PO DAILY 10/15/20 05/01/21 History Aspirin [Adult Low Dose Aspirin EC] 81 mg PO DAILY 05/01/21 05/01/21 History Citalopram Hydrobromide [CeleXA] 20 mg PO DAILY 05/01/21 05/01/21 History Fluticasone Propion/Salmeterol 1 inhalation PO BID 05/01/21 05/01/21 History [Fluticasone-Salmeterol 250-50] Losartan Potassium 50 mg PO DAILY 05/01/21 05/01/21 History hydroCHLOROthiazide [Hydrodiuril] 25 mg PO DAILY 05/01/21 05/01/21 History Allergies Allergy/AdvReac Type Severity Reaction Status Date / Time sulfamethoxazole Allergy Swelling Verified 05/01/21 13:07 [From Bactrim] trimethoprim [From Bactrim] Allergy Swelling Verified 05/01/21 13:07
[2021-05-03 08:24] VITALS: TEMP 98
--- NOTE | 2021-05-03 08:31 | P.PCN ---
Date of Procedure: 05/03/21 Description of Procedure: PREOPERATIVE DIAGNOSIS: Personal history colon polyps Colonoscopy screening. POSTOPERATIVE DIAGNOSIS: Colonoscopy screening. Diverticulosis, sigmoid colon OPERATION: Colonoscopy to the cecum, ileocecal valve and appendiceal orifice. SURGEON: Carol Aguilar MD. ANESTHESIA: MAC. INDICATIONS: The patient is a 45-year-old female who presents for colonoscopy screening. Last over 5 years ago. Benefits and risks were described and informed consent was obtained. DESCRIPTION OF PROCEDURE: The patient had undergone Sutab prep. The patient had been brought into the operating room and laid in the left lateral decubitus position. After adequate intravenous sedation, the rectum was examined with 2% lidocaine jelly. No external hemorrhoids were encountered. The rectal tone was within normal limits. No lesions were palpated in the rectal vault. An Olympus colonoscope was a dvanced until the cecum, ileocecal valve and appendiceal orifice were clearly viewed. The prep was excellent. Scattered diverticulosis was encountered. No colonic polyps were found. No evidence of focal colitis was found. Retroflexion of the scope demonstrated grade 1 internal hemorrhoids without active bleeding or inflammation. The colon was desufflated. The patient had tolerated the procedure well. Withdrawal time was over 6 minutes. FINDINGS: Aronchick preparation quality scale 1 (1-5) Internal hemorrhoids, grade 1 No external prolapsed hemorrhoids. No arteriovenous malformations. No adenomatous polyps. No focal colitis. RECOMMENDATIONS: Lower endoscopy in 5 years, 2026 Plan - Discharge Summary Discharge Rx Participant: No New Discharge Prescriptions: Continue Esomeprazole Magnesium [NexIUM 24Hr] 20 mg PO BID PRN PRN Reason: GERDS Magnesium Oxide [Mag-Ox] 400 mg PO HS Ascorbic Acid [Vitamin C] 1,000 mg PO DAILY Acetaminophen [Tylenol] 1,000 mg PO Q4-6H PRN PRN Reason: Pain Or Fever > 100.5 Citalopram Hydrobromide [CeleXA] 20 mg PO DAILY Zinc 50 mg PO DAILY Cholecalciferol [Vitamin D3 (25 Mcg = 1000 Iu)] 50 mcg PO DAILY Turmeric Root Extract [Turmeric] 500 mg PO DAILY LORazepam [Ativan] 0.5 mg PO TID PRN PRN Reason: Anxiety hydroCHLOROthiazide [Hydrodiuril] 25 mg PO DAILY Losartan Potassium 50 mg PO DAILY Fluticasone Propion/Salmeterol [Fluticasone-Salmeterol 250-50] 1 inhalation PO BID Aspirin [Adult Low Dose Aspirin EC] 81 mg PO DAILY Discharge Medication List Acetaminophen [Tylenol] 1,000 mg PO Q4-6H PRN 10/15/20 [History] Ascorbic Acid [Vitamin C] 1,000 mg PO DAILY 10/15/20 [History] Cholecalciferol [Vitamin D3 (25 Mcg = 1000 Iu)] 50 mcg PO DAILY 10/15/20 [History] Esomeprazole Magnesium [NexIUM 24Hr] 20 mg PO BID PRN 10/15/20 [History] LORazepam [Ativan] 0.5 mg PO TID PRN 10/15/20 [History] Magnesium Oxide [Mag-Ox] 400 mg PO HS 10/15/20 [History] Turmeric Root Extract [Turmeric] 500 mg PO DAILY 10/15/20 [History] Zinc 50 mg PO DAILY 10/15/20 [History] Aspirin [Adult Low Dose Aspirin EC] 81 mg PO DAILY 05/01/21 [History] Citalopram Hydrobromide [CeleXA] 20 mg PO DAILY 05/01/21 [History] Fluticasone Propion/Salmeterol [Fluticasone-Salmeterol 250-50] 1 inhalation PO BID 05/01/21 [History] Losartan Potassium 50 mg PO DAILY 05/01/21 [History] hydroCHLOROthiazide [Hydrodiuril] 25 mg PO DAILY 05/01/21 [History] Follow up Appointment(s)/Referral(s): Carol Aguilar MD [STAFF PHYSICIAN] - 1 Week Patient Instructions/Handouts: Diverticulosis Diet (GEN), Diverticulosis (GEN), *Surgery [facility] - (Anesthesia) Endoscopy Discharge Instructions, Colonoscopy (DC) Activity/Diet/Wound Care/Special Instructions: Repeat colonoscopy in 5 years, 2026 Discharge Disposition: HOME SELF-CARE
[2021-05-03] MEDS ORDERED: PROPOFOL 10 MG/ML 20 ML VIAL IV ONE (09:36)
[2021-05-03 10:12] VITALS: BP 110/71; PULSE 65; RESP 17
== END 2021-05-03 11:07 | disposition home or self-care (01) ==
LOC: ORWHC2ENDO 08:00
PROVIDERS: ATTEND Surgery Plastic and Reconstructive Surgery
DX: Z12.11 Encounter for screening for malignant neoplasm of colon (principal); K57.30 Diverticulosis of large intestine without perforation or abscess without bleeding; K64.0 First degree hemorrhoids; Z86.010 Personal history of colon polyps; K21.9 Gastro-esophageal reflux disease without esophagitis; E78.5 Hyperlipidemia, unspecified; I10 Essential (primary) hypertension; Z98.51 Tubal ligation status; Z98.890 Other specified postprocedural states; Z87.891 Personal history of nicotine dependence; Z79.82 Long term (current) use of aspirin; Z79.899 Other long term (current) drug therapy; Z88.2 Allergy status to sulfonamides
CPT/HCPCS: 84703; J2704; G0105

== ENCOUNTER → 2022-05-27 | Outpatient (CLI) | payer BC ==
--- NOTE | 2022-05-28 09:18 | MM ---
Reason for Exam: Screening (asymptomatic). Last mammogram was performed 1 year(s) and 2 month(s) ago. Patient History: Menarche at age 11. First Full-Term at age 16. Perimenopausal. Hormonal Contraceptives, from age 16 until age 18. Risk Values: Kelli 5 year model risk: 0.7%. NCI Lifetime model risk: 6.7%. Prior Study Comparison: 12/03/2017 Bilateral Screening Mammogram, [facility]. 12/03/2017 Right Diagnostic Mammogram, [facility]. 04/20/2021 Bilateral Screening Mammogram, [facility]. Tissue Density: The breast tissue is heterogeneously dense. This may lower the sensitivity of mammography. Findings: Analyzed By CAD. There is no suspicious group of microcalcifications or new suspicious mass in either breast. Chronic nodularity within the right breast. Overall Assessment: Benign, BI-RAD 2 Management: Screening Mammogram of both breasts in 1 year. A clinical breast exam by your physician is recommended on an annual basis and results should be correlated with mammographic findings. Electronically signed and approved by: Antione Najera D.O.
== END | disposition home or self-care (01) ==
LOC: RADMAMWWP 13:33
PROVIDERS: ATTEND Family Medicine
DX: Z12.31 Encounter for screening mammogram for malignant neoplasm of breast (principal)
CPT/HCPCS: 77063; 77067

== ENCOUNTER → 2023-06-18 | Outpatient (CLI) | payer BC ==
--- NOTE | 2023-06-22 20:41 | MM ---
Reason for Exam: Screening (asymptomatic). Last screening mammogram was performed 12 month(s) ago. Patient History: Menarche at age 11. First Full-Term at age 16. Perimenopausal. Hormonal Contraceptives, from age 16 until age 18. Risk Values: Kelli 5 year model risk: 0.7%. NCI Lifetime model risk: 6.6%. Prior Study Comparison: 12/03/2017 Right Diagnostic Mammogram, [facility]. 04/20/2021 Bilateral Screening Mammogram, [facility]. 05/27/2022 Bilateral MG 3D screening mammo w/cad, [facility]. Tissue Density: There are scattered areas of fibroglandular density. Findings: Analyzed By CAD. Cardiac nodularity on the right. Unchanged bilateral areas of asymmetric density. There is no suspicious group of microcalcifications or new suspicious mass in either breast. Overall Assessment: Benign, BI-RAD 2 Management: Screening Mammogram of both breasts in 1 year. . Patient should continue monthly self-breast exams. A clinical breast exam by your physician is recommended on an annual basis. This exam should not preclude additional follow-up of suspicious palpable abnormalities. Note on Kelli scores and lifetime risk: 1. A Kelli score greater than 3% is considered moderate risk. If this is the case, consider specialist referral to assess eligibility for a risk reducing agent. 2. If overall lifetime risk for the development of breast cancer is 20% or higher, the patient may qualify for future screening with alternating mammogram and breast MRI. Electronically signed and approved by: Saw Cox M.D. Radiologist
== END | disposition home or self-care (01) ==
LOC: RADMAMWWP 15:47
PROVIDERS: ATTEND Family Medicine
DX: Z12.31 Encounter for screening mammogram for malignant neoplasm of breast (principal)
CPT/HCPCS: 77063; 77067

== ENCOUNTER → 2024-07-12 | Outpatient (CLI) | payer BC ==
--- NOTE | 2024-07-13 08:47 | MM ---
Reason for Exam: Screening (asymptomatic). Last mammogram was performed 1 year(s) and 1 month(s) ago. Patient History: Menarche at age 11. First Full-Term at age 16. Perimenopausal. Hormonal Contraceptives, from age 16 until age 18. Risk Values: Kelli 5 year model risk: 0.7%. NCI Lifetime model risk: 6.5%. Prior Study Comparison: 04/20/2021 Bilateral Screening Mammogram, [facility]. 05/27/2022 Bilateral MG 3D screening mammo w/cad, [facility]. 06/18/2023 Bilateral MG 3D screening mammo w/cad, [facility]. Tissue Density: The breasts are heterogeneously dense, which may obscure small masses. Findings: Analyzed By CAD. Right breast: There is no suspicious group of microcalcifications or new suspicious mass. Left breast: There is no suspicious group of microcalcifications or new suspicious mass. Overall Assessment: Negative, BI-RAD 1 Management: Screening Mammogram of both breasts in [address] [facility] will attempt to contact patient to return for supplemental views and ultrasound if indicated. Patient should continue monthly self-breast exams. A clinical breast exam by your physician is recommended on an annual basis. This exam should not preclude additional follow-up of suspicious palpable abnormalities. Note on Kelli scores and lifetime risk: 1. A Kelli score greater than 3% is considered moderate risk. If this is the case, consider specialist referral to assess eligibility for a risk reducing agent. 2. If overall lifetime risk for the development of breast cancer is 20% or higher, the patient may qualify for future screening with alternating mammogram and breast MRI. [facility], , 07/13/2024 8:45 AM. Electronically signed and approved by: Ghanshyam Márquez DO
== END | disposition home or self-care (01) ==
LOC: RADMAMWWP 16:32
PROVIDERS: ATTEND Family Medicine
DX: Z12.31 Encounter for screening mammogram for malignant neoplasm of breast (principal); R92.333 Mammographic heterogeneous density, bilateral breasts; Z92.0 Personal history of contraception
CPT/HCPCS: 77063; 77067